=== PATIENT | female | born 1970 | race Caucasian/White ===

== ENCOUNTER 2022-05-21 11:05 | Observation (INO) ==
[2022-05-21] MEDS ORDERED: Iopamidol - 370 500 ML MLS IVP ONE (11:27)
[2022-05-21 12:01] LABS: Basophils % 0.6 %; Eosinophils # 0.1 K/mcL (0.0-0.6); Eosinophils % 2.2 %; Hematocrit 38.8 % (35.3-44.9); Hemoglobin 12.6 g/dL (11.5-15.4); Immature Granulocytes % 0.5 % (0-4); Lymphocytes # 0.7 K/mcL (0.6-4.6); Mean Corpuscular HGB Conc 32.5 g/dL (31.6-35.5); Mean Corpuscular Volume 89.4 fL (83.0-100.0); Monocytes # 0.5 K/mcL (0.0-1.3); Monocytes % 7.6 %; Neutrophils # 5.1 K/mcL (1.6-8.9); Platelet Count 217 K/mcL (140-400); Red Blood Count 4.34 M/mcL (3.82-4.97); Red Cell Distribution Width 13.3 % (11.5-14.5); Segmented Neutrophils % 79.1 %; White Blood Count 6.5 K/mcL (4.3-11.1)
[2022-05-21 12:05] LABS: Bilirubin,Urine Negative (Negative); Blood,Urine Negative (Negative); Clarity,Urine Clear (Clear); Color,Urine Light-Yellow (Yellow); Glucose,Urine (UA) Normal (Normal); Ketones,Urine Negative (Negative); Leukocyte Esterase,Urine Negative (Negative); Nitrite,Urine Negative (Negative); Protein,Urine Negative (Neg-Trace); Specific Gravity,Urine 1.011 (1.010-1.025); Urobilinogen,Urine Normal (Normal)
[2022-05-21 12:21] LABS: Alanine Aminotransferase 11 Units/L (7-52); Albumin/Globulin Ratio 1.2 (1.1-2.2); Alkaline Phosphatase 143 Units/L (34-104); Aspartate Amino Transferase 15 Units/L (13-39); BUN/Creatinine Ratio 12 (6-26); Bilirubin,Total 0.3 mg/dL (0.3-1.0); Blood Urea Nitrogen 9 mg/dL (6-20); Calcium 8.6 mg/dL (8.6-10.3); Carbon Dioxide 25 mEq/L (23-29); Chloride 101 mEq/L (98-107); Globulin 3.3 g/dL (2.4-3.5); Glucose 96 mg/dL (70-105); Magnesium 1.7 mg/dL (1.6-2.6); Osmolality,Calculated 277 (280-300); Potassium 4.2 mEq/L (3.5-5.1); Sodium 134 mEq/L (136-145); Total Protein 7.3 g/dL (6.4-8.9); eGFR For African Americans > 60 (> 60); eGFR For Non-African Americans > 60 (> 60)
[2022-05-21] MEDS ORDERED: Naloxone 0.4 MG/ML INJ IVP PRN (15:28)
[2022-05-21] MEDS ORDERED: Ondansetron ODT 4 MG TAB.RAPDIS SL PRN (15:28)
[2022-05-21] MEDS: *HR* Heparin 5,000 UNIT/ML VIAL SQ SCH (18:12)
[2022-05-21] MEDS: Pantoprazole 40 MG VIAL IVP SCH (21:02)
[2022-05-22] MEDS: Pantoprazole 40 MG VIAL IVP SCH ×2 (05:49→17:00)
[2022-05-22] MEDS: *HR* Heparin 5,000 UNIT/ML VIAL SQ SCH ×2 (05:51→16:59)
[2022-05-22 07:07] LABS: BUN/Creatinine Ratio 12 (6-26); Blood Urea Nitrogen 9 mg/dL (6-20); Calcium 8.8 mg/dL (8.6-10.3); Carbon Dioxide 29 mEq/L (23-29); Chloride 102 mEq/L (98-107); Chol/HDL Ratio 4.4 (0-4.9); Cholesterol 217 mg/dL (< 200); Glucose 97 mg/dL (70-105); HDL Cholesterol 49 mg/dL (40-59); LDL Cholesterol,Calculated 131 mg/dL (< 100); Magnesium 2.1 mg/dL (1.6-2.6); Osmolality,Calculated 285 (280-300); Phosphorous 4.7 mg/dL (2.7-4.5); Potassium 4.5 mEq/L (3.5-5.1); Sodium 138 mEq/L (136-145); Triglycerides 187 mg/dL (< 150); eGFR For African Americans > 60 (> 60); eGFR For Non-African Americans > 60 (> 60)
[2022-05-22 08:35] LABS: Phenytoin (Dilantin) 35.4 mcg/mL (10.0-20.0)
[2022-05-22] MEDS: 0.9 % Sodium Chloride 1,000 ML IVC SCH ×2 (10:31→22:27)
[2022-05-22] MEDS ORDERED: levETIRAcetam 1,000 MG in 0.9 % Sodium Chloride 100 ML IVPB ONE (11:39)
[2022-05-22] MEDS ORDERED: levETIRAcetam 500 MG/5 ML UDC PO SCH (21:00)
[2022-05-22] MEDS: levETIRAcetam 250 MG TABLET PO SCH (21:12)
[2022-05-23] MEDS: Pantoprazole 40 MG VIAL IVP SCH (05:22)
[2022-05-23] MEDS: *HR* Heparin 5,000 UNIT/ML VIAL SQ SCH (05:23)
[2022-05-23 05:24] LABS: BUN/Creatinine Ratio 21 (6-26); Blood Urea Nitrogen 13 mg/dL (6-20); Calcium 8.2 mg/dL (8.6-10.3); Carbon Dioxide 26 mEq/L (23-29); Chloride 109 mEq/L (98-107); Glucose 99 mg/dL (70-105); Osmolality,Calculated 290 (280-300); Phenytoin (Dilantin) 26.1 mcg/mL (10.0-20.0); Potassium 3.8 mEq/L (3.5-5.1); Sodium 140 mEq/L (136-145); eGFR For African Americans > 60 (> 60); eGFR For Non-African Americans > 60 (> 60)
[2022-05-23] MEDS: 0.9 % Sodium Chloride 1,000 ML IVC SCH ×2 (07:16→09:47)
[2022-05-23 07:48] VITALS: BP 119/79; PULSE 73; TEMP 97.6; O2SAT 99
[2022-05-23] MEDS: levETIRAcetam 250 MG TABLET PO SCH (08:29)
[2022-05-24 17:12] LABS: Phenytoin (Dilantin) Free 4.2 ug/mL (1.0-2.5)
[2022-05-25 12:33] LABS: Phenytoin Percent Free 11.7 % (8.0-14.0)
== END 2022-05-23 12:17 | disposition home or self-care (01) ==
LOC: EMEROOARM 11:05 → 3BNU 11:05
PROVIDERS: ADMIT Internal Medicine; ATTEND Internal Medicine

== ENCOUNTER 2022-05-30 14:34 | Inpatient (IN) ==
[2022-05-30] MEDS ORDERED: Ondansetron 4 MG/2 ML VIAL IVP PRN (18:28)
[2022-05-30] MEDS ORDERED: Naloxone 0.4 MG/ML INJ IVP PRN ×2 (18:28→19:44)
[2022-05-30] MEDS ORDERED: *HR* LORazepam 2 MG/ML VIAL IVP PRN (18:30)
[2022-05-30 19:42] LABS: Basophils % 0.4 %; Eosinophils % 0.2 %; Hematocrit 41.3 % (35.3-44.9); Immature Granulocytes % 0.2 % (0-4); Lymphocytes % 20.6 %; Mean Corpuscular HGB Conc 31.5 g/dL (31.6-35.5); Mean Corpuscular Hemoglobin 29.5 pg (28.0-33.3); Mean Corpuscular Volume 93.7 fL (83.0-100.0); Mean Platelet Volume 10.2 fL (9.4-12.4); Monocytes # 0.6 K/mcL (0.0-1.3); Monocytes % 5.9 %; Neutrophils # 7.1 K/mcL (1.6-8.9); Platelet Count 206 K/mcL (140-400); Red Blood Count 4.41 M/mcL (3.82-4.97); Red Cell Distribution Width 13.4 % (11.5-14.5); Segmented Neutrophils % 72.7 %; White Blood Count 9.8 K/mcL (4.3-11.1)
[2022-05-30 20:02] LABS: Alanine Aminotransferase 17 Units/L (7-52); Albumin 4.1 g/dL (3.5-5.7); Albumin/Globulin Ratio 1.4 (1.1-2.2); Alkaline Phosphatase 129 Units/L (34-104); Aspartate Amino Transferase 21 Units/L (13-39); BUN/Creatinine Ratio 13 (6-26); Bilirubin,Total 0.4 mg/dL (0.3-1.0); Blood Urea Nitrogen 7 mg/dL (6-20); Calcium 8.7 mg/dL (8.6-10.3); Carbon Dioxide 24 mEq/L (23-29); Chloride 107 mEq/L (98-107); Glucose 97 mg/dL (70-105); Magnesium 1.9 mg/dL (1.6-2.6); Osmolality,Calculated 286 (280-300); Potassium 3.7 mEq/L (3.5-5.1); Sodium 139 mEq/L (136-145); Total Protein 7.1 g/dL (6.4-8.9); eGFR For African Americans > 60 (> 60); eGFR For Non-African Americans > 60 (> 60)
[2022-05-30 20:09] LABS: Troponin I < 0.03 ng/mL (< 0.04)
[2022-05-30] MEDS: Acetaminophen 325 MG TABLET PO PRN (21:29)
[2022-05-30] MEDS: levETIRAcetam 1,000 MG in 0.9 % Sodium Chloride 100 ML IVPB SCH (22:00)
[2022-05-30 22:17] LABS: Phosphorous 3.7 mg/dL (2.7-4.5)
[2022-05-30 23:42] LABS: Thyroid Stimulating Hormone 2.436 mcIU/mL (0.340-5.600)
[2022-05-30 23:47] LABS: Prolactin 7.01 ng/mL (3.80-23.20)
[2022-05-30] MEDS: Valproic Acid INJ 500 MG in 0.9 % Sodium Chloride 100 ML IVPB SCH (23:55)
[2022-05-31 04:14] LABS: Amphetamine Screen,Urine Negative ng/mL (Cutoff=1000); Barbiturate Screen,Urine Negative ng/mL (Cutoff=200); Benzodiazepines Screen,Urine Positive ng/mL (Cutoff=200); Cannabinoid Screen,Urine Negative ng/mL (Cutoff = 50); Cocaine Screen,Urine Negative ng/mL (Cutoff= 300); Opiate Screen,Urine Negative ng/mL (Cutoff=300); Phencyclidine Screen,Urine Negative ng/mL (Cutoff=25)
[2022-05-31 06:05] LABS: Hematocrit 37.6 % (35.3-44.9); Hemoglobin 12.3 g/dL (11.5-15.4); Mean Corpuscular HGB Conc 32.7 g/dL (31.6-35.5); Mean Corpuscular Hemoglobin 29.1 pg (28.0-33.3); Mean Corpuscular Volume 88.9 fL (83.0-100.0); Mean Platelet Volume 10.5 fL (9.4-12.4); Platelet Count 224 K/mcL (140-400); Red Blood Count 4.23 M/mcL (3.82-4.97); Red Cell Distribution Width 13.3 % (11.5-14.5); White Blood Count 8.5 K/mcL (4.3-11.1)
[2022-05-31 06:23] LABS: BUN/Creatinine Ratio 14 (6-26); Blood Urea Nitrogen 8 mg/dL (6-20); Calcium 8.5 mg/dL (8.6-10.3); Carbon Dioxide 27 mEq/L (23-29); Chloride 107 mEq/L (98-107); Chol/HDL Ratio 4.2 (0-4.9); Cholesterol 193 mg/dL (< 200); Glucose 96 mg/dL (70-105); HDL Cholesterol 46 mg/dL (40-59); LDL Cholesterol,Calculated 119 mg/dL (< 100); Osmolality,Calculated 290 (280-300); Sodium 141 mEq/L (136-145); Triglycerides 140 mg/dL (< 150); eGFR For African Americans > 60 (> 60); eGFR For Non-African Americans > 60 (> 60)
[2022-05-31] MEDS: *HR* Enoxaparin 40 MG/0.4 ML SYRINGE SQ SCH (06:47)
[2022-05-31] MEDS: Acetaminophen 325 MG TABLET PO PRN (08:33)
[2022-05-31] MEDS: Valproic Acid INJ 500 MG in 0.9 % Sodium Chloride 100 ML IVPB SCH ×2 (08:39→16:52)
[2022-05-31] MEDS: levETIRAcetam 1,000 MG in 0.9 % Sodium Chloride 100 ML IVPB SCH ×2 (09:49→20:33)
[2022-05-31] MEDS: Magic Mouthwash 10 ML UD Cup PO SCH ×2 (12:23→18:24)
[2022-05-31] MEDS ORDERED: Iopamidol - 370 500 ML MLS IVP ONE (12:55)
[2022-05-31] MEDS ORDERED: Perflutren Lipid Microsphere 1.3 ML in 0.9 % Sodium Chloride 8.7 ML IVP PRN (13:07)
[2022-05-31] MEDS: Aspirin 81 MG TAB.CHEW PO SCH (14:51)
[2022-06-01] MEDS: Divalproex Sodium 125 MG Sprinkle Capsule (DR) PO SCH ×2 (00:36→08:06)
[2022-06-01] MEDS: *HR* Enoxaparin 40 MG/0.4 ML SYRINGE SQ SCH (06:13)
[2022-06-01] MEDS: Valproic Acid INJ 500 MG in 0.9 % Sodium Chloride 100 ML IVPB SCH (07:24)
[2022-06-01] MEDS: levETIRAcetam 250 MG TABLET PO SCH ×2 (08:05→20:37)
[2022-06-01] MEDS: Aspirin 81 MG TAB.CHEW PO SCH (08:05)
[2022-06-01] MEDS: Magic Mouthwash 10 ML UD Cup PO SCH ×3 (08:05→16:42)
[2022-06-01] MEDS: Divalproex (12 HR) 500 MG TABLET PO SCH ×2 (11:00→20:37)
[2022-06-01] MEDS: Acetaminophen 325 MG TABLET PO PRN (14:03)
[2022-06-02] MEDS: *HR* Enoxaparin 40 MG/0.4 ML SYRINGE SQ SCH (06:25)
[2022-06-02 06:40] VITALS: BP 105/68; PULSE 62; TEMP 98.1; O2SAT 94
[2022-06-02] MEDS: Divalproex (12 HR) 500 MG TABLET PO SCH (08:18)
[2022-06-02] MEDS: Aspirin 81 MG TAB.CHEW PO SCH (08:19)
[2022-06-02] MEDS: levETIRAcetam 250 MG TABLET PO SCH (08:19)
[2022-06-02] MEDS: Magic Mouthwash 10 ML UD Cup PO SCH (08:49)
== END 2022-06-02 10:47 | disposition home or self-care (01) | DRG 45 ==
LOC: 3BNU → SUATTDRO 17:59
PROVIDERS: ADMIT Internal Medicine; ATTEND Internal Medicine